=== PATIENT | male | born 1955 | race Caucasian/White ===

== ENCOUNTER 2016-07-01 16:49 | Emergency (ER) | payer MEDICARE, MEDICAID ==
[2016-07-01] MEDS ORDERED: Aspirin Low Dose CHEW TAB* 81 MG PO ONE (17:14)
[2016-07-01 17:33] LABS: Hematocrit 41 % (42-52); Hemoglobin 13.2 g/dl (14.0-18.0); Mean Corpuscular HGB Conc 33 g/dl (31-36); Mean Corpuscular Hemoglobin 32 pg (27-31); Mean Corpuscular Volume 97 fL (80-94); Mean Platelet Volume 7 um3 (7.4-10.4); Red Blood Count 4.16 10^6/ul (4.0-5.4); Red Cell Distribution Width 16 % (10.5-15); White Blood Count 4.5 10^3/ul (3.5-10.8)
[2016-07-01 18:10] LABS: BUN/Creatinine Ratio 11.1 (8-20); Calcium 9.4 mg/dL (8.6-10.3); EGFR African American 99.2 (>60); EGFR Non-African American 77.1 (>60); Globulin 2.9 g/dL (2-4); Magnesium 1.8 mg/dL (1.9-2.7); Total Bilirubin 0.3 mg/dL (0.2-1.0); Total Protein 6.9 g/dL (6.4-8.9)
[2016-07-01 18:24] LABS: T4 6.32 g/dL (6.09-12.23)
[2016-07-01 18:25] LABS: TSH (Thyroid Stimulating Horm) 1.03 mcIU/mL (0.34-5.60)
--- NOTE | 2016-07-01 18:35 | RAD ---
INDICATION: Chest pain. Asthma. COMPARISON: October 26, 2015 portable chest radiograph and April 10, 2014 CT. TECHNIQUE: Dual energy PA and routine lateral views of the chest were obtained. REPORT: Mild bibasilar alveolar and interstitial consolidation. Negative for pleural effusions. Apparent bilateral peripheral pleural thickening corresponds with subpleural fat on CT. Mild cardiomegaly. Unremarkable central pulmonary vasculature. IMPRESSION: Suggestion of mild bibasilar airspace consolidation concerning for pneumonia given absence of volume loss to favor atelectasis.
[2016-07-01] MEDS ORDERED: Levofloxacin 750 MG IVPREMIX(* 750 MG/150 ML BAG IVPB ONE (20:00)
--- NOTE | 2016-07-01 21:58 | ED ---
Live Jarrett Matthew, scribed for Arron Wick MD on 07/01/16 at 1913 . HPI Chest Pain - HPI Summary HPI Summary: A 61 y/o male presents to the ED with intermittent mid-sternal chest pain since 16:00. The pain is rated 8/10 in severity. Associated symptoms include productive cough. The patient denies SOB, nausea, and vomiting. The patient has episodes of chest pain frequently according to his sister. He also had a Hx of frequent pneumonia. Hx of Crohn's disease, some MR, and schizophrenia - History of Current Complaint Chief Complaint: EDChestPainROMI Time Seen by Provider: 07/01/16 18:59 Onset/Duration: Started Hours Ago, Atraumatic, Still Present Timing: Intermittent Initial Severity: Moderate Current Severity: Moderate Pain Intensity: 8 Pain Scale Used: 0-10 Numeric Chest Pain Location: Mid Sternal Chest Pain Radiates: No Associated Signs and Symptoms: Positive: Chest Pain, Cough. Negative: Shortness of Breath, Nausea, Vomiting - Allergy/Home Medications Allergies/Adverse Reactions: Allergies Allergy/AdvReac Type Severity Reaction Status Date / Time No Known Allergies Allergy Verified 09/19/13 17:49 PMH/Surg Hx/FS Hx/Imm Hx Endocrine/Hematology History: Reports: Hx Thyroid Disease Denies: Hx Anticoagulant Therapy, Hx Blood Disorders, Hx Blood Transfusions, Hx Bone Marrow Disease, Hx Diabetes, Hx Systemic Lupus Erythematosus, Hx Sickle Cell Disease, Hx Anemia, Hx Unexplained Bleeding, Other Endocrine/Hematological Disorders Respiratory History: Reports: Hx Asthma, Hx Chronic Bronchitis, Hx Pneumonia, Hx Pulmonary Edema Denies: Hx Chronic Obstructive Pulmonary Disease (COPD), Hx Cystic Fibrosis, Hx Lung Cancer, Hx Pleural Effusion, Hx Pulmonary Embolism, Hx Seasonal Allergies, Hx Sleep Apnea, Other Respiratory Problems/Disorders GI History: Reports: Hx Crohn's Disease Denies: Hx Cirrhosis, Hx Diverticulosis, Hx Gall Bladder Disease, Hx Gastroesophageal Reflux Disease, Hx Gastrointestinal Bleed, Hx Hiatal Hernia, Hx Irritable Bowel, Hx Jaundice, Hx Obstructive Bowel, Hx Ileostomy, Hx Ulcer, Other GI Disorders History: Reports: Other Problems/Disorders - enlarged prostate Musculoskeletal History: Reports: Other Musculoskeletal History - hip replacement weak on legs Denies: Hx Arthritis, Hx Back Problems, Hx Bursitis, Hx Congenital Bone Abnormalities, Hx Fibromyalgia, Hx Gout, Hx Orthopedic Injury, Hx Osteoporosis, Hx Scoliosis, Hx Tendonitis Sensory History: Reports: Hx Contacts or Glasses - not with patient, Hx Vision Problem Denies: Hx Cataracts, Hx Eye Injury, Hx Eye Prosthesis, Hx Glaucoma, Hx Legally Blind, Hx Macular Degeneration, Hx Deafness, Hx Hearing Aid, Hx Hearing Problem, Other Sensory Impairments Opthamlomology History: Reports: Hx Contacts or Glasses - not with patient, Hx Vision Problem Denies: Hx Cataracts, Hx Eye Injury, Hx Eye Prosthesis, Hx Glaucoma, Hx Legally Blind, Hx Macular Degeneration, Other Sensory Impairments Neurological History: Reports: Hx Developmental Delay Denies: Hx Dementia, Hx Headaches, Hx Migraine, Hx Nerve Disease, Hx Seizures , Hx Spinal Cord Injury, Hx Transient Ischemic Attacks (TIA), Other Neuro Impairments/Disorders Psychiatric History: Reports: Hx Anxiety, Hx Attention Deficit Hyperactivity Disorder, Hx Eating Disorder - fixation on food wants to eat a lot, Hx Depression, Hx Panic Disorder, Hx Inpatient Treatment, Hx Community Mental Health Tx, Hx Schizophrenia, Hx Bipolar Disorder, Other Psychiatric Issues/ Disorders - hospital stays increase anxiety Denies: Hx Post Traumatic Stress Disorder, Hx Suicide Attempt, Hx of Violent Episodes Against Others, Hx Substance Abuse - Cancer History Hx Chemotherapy: No Hx Radiation Therapy: No Hx Palliative Cancer Treatment: No - Surgical History Surgery Procedure, Year, and Place: partial thyroidectomy 2013, bowel resection , total hip replacement Hx Anesthesia Reactions: No Infectious Disease History: No Infectious Disease History: Denies: Hx Clostridium Difficile, Hx Hepatitis, Hx Human Immunodeficiency Virus (HIV), Hx of Known/Suspected MRSA, Hx Shingles, Hx Tuberculosis, Hx Known/ Suspected VRE, Hx Known/Suspected VRSA, History Other Infectious Disease, Traveled Outside the [place] in Last 30 Days - Family History Known Family History: Positive: Cardiac Disease - Social History Alcohol Use: None Substance Use Type: Reports: None, Other Smoking Status (MU): Never Smoked Tobacco Review of Systems Constitutional: Negative Eyes: Negative ENT: Negative Positive: Chest Pain Positive: Cough. Negative: Shortness Of Breath Gastrointestinal: Negative Negative: Vomiting, Nausea Genitourinary: Negative Musculoskeletal: Negative Skin: Negative Neurological: Negative Psychological: Other - minimal MR All Other Systems Reviewed And Are Negative: Yes Physical Exam - Summary Physical Exam Summary: VITAL SIGNS: Reviewed. GENERAL: Patient is a well developed and nourished male who is lying comfortable in the stretcher. Patient is not in any acute respiratory distress. HEAD AND FACE: No signs of trauma. No ecchymosis, hematomas or skull depressions. No sinus tenderness. EYES: PERRLA, EOMI x 2, No injected conjunctiva, no nystagmus. EARS: Hearing grossly intact. Ear canals and tympanic membranes are within normal limits. MOUTH: Oropharynx within normal limits. NECK: Supple, trachea is midline, no adenopathy, no JVD, no carotid bruit, no c- spine tenderness, neck with full ROM. CHEST: Symmetric, no tenderness at palpation LUNGS: Clear to auscultation bilaterally. No wheezing or crackles. CVS: Regular rate and rhythm, S1 and S2 present, no murmurs or gallops appreciated. ABDOMEN: Soft, non-tender. No signs of distention. No rebound no guarding, and no masses palpated. Bowel sounds are normal. EXTREMITIES: FROM in all major joints, no edema, no cyanosis or clubbing. NEURO: Alert and oriented x 3. No acute neurological deficits. Speech is normal and follows commands. SKIN: Dry and warm Triage Information Reviewed: Yes Vital Signs On Initial Exam: Initial Vitals Temp Pulse Resp BP Pulse Ox 98.8 F 103 16 147/80 94 07/01/16 17:13 07/01/16 17:13 07/01/16 17:13 07/01/16 17:13 07/01/16 17:13 Vital Signs Reviewed: Yes Diagnostics - Vital Signs Vital Signs Temp Pulse Resp BP Pulse Ox 07/01/16 18:41 98.3 F 87 18 148/93 94 07/01/16 17:13 98.8 F 103 16 147/80 94 - Laboratory Lab Results: Lab Results 07/01/16 07/01/16 07/01/16 Range/Units 17:24 17:24 17:24 WBC 4.5 (3.5-10.8) 10^3/ul RBC 4.16 (4.0-5.4) 10^6/ul Hgb 13.2 L (14.0-18.0) g/dl Hct 41 L (42-52) % MCV 97 H (80-94) fL MCH 32 H (27-31) pg MCHC 33 (31-36) g/dl RDW 16 H (10.5-15) % Plt Count 168 (150-450) 10^3/ul MPV 7 L (7.4-10.4) um3 Neut % (Auto) 53.9 (38-83) % Lymph % (Auto) 28.2 (25-47) % Fisher % (Auto) 13.6 H (1-9) % Eos % (Auto) 2.9 (0-6) % Baso % (Auto) 1.4 (0-2) % Absolute Neuts (auto) 2.4 (1.5-7.7) 10^3/ul Absolute Lymphs (auto) 1.3 (1.0-4.8) 10^3/ul Absolute Monos (auto) 0.6 (0-0.8) 10^3/ul Absolute Eos (auto) 0.1 (0-0.6) 10^3/ul Absolute Basos (auto) 0.1 (0-0.2) 10^3/ul Absolute Nucleated RBC 0 10^3/ul Nucleated RBC % 0 Sodium 139 (133-145) mmol/L Potassium 4.0 (3.5-5.0) mmol/L Chloride 101 (101-111) mmol/L Carbon Dioxide 28 (22-32) mmol/L Anion Gap 10 (2-11) mmol/L BUN 11 (6-24) mg/dL Creatinine 0.99 (0.67-1.17) mg/dL Est GFR ( Amer) 99.2 (>60) Est GFR (Non-Af Amer) 77.1 (>60) BUN/Creatinine Ratio 11.1 (8-20) Glucose 128 H (70-100) mg/dL Lactic Acid 2.5 H* (0.5-2.0) mmol/L Calcium 9.4 (8.6-10.3) mg/dL Magnesium 1.8 L (1.9-2.7) mg/dL Total Bilirubin 0.30 (0.2-1.0) mg/dL AST 25 (13-39) U/L ALT 23 (7-52) U/L Alkaline Phosphatase 64 (34-104) U/L CK-MB (CK-2) 1.6 (0.6-6.3) ng/mL Myoglobin 76.4 (17.4-105.7) ng/mL Troponin I 0.00 (<0.04) ng/mL B-Natriuretic Peptide ( - 100) pg/mL Total Protein 6.9 (6.4-8.9) g/dL Albumin 4.0 (3.2-5.2) g/dL Globulin 2.9 (2-4) g/dL Albumin/Globulin Ratio 1.4 (1-3) TSH 1.03 (0.34-5.60) mcIU/mL Thyroxine (T4) 6.32 (6.09-12.23) g/dL 07/01/16 Range/Units 17:24 WBC (3.5-10.8) 10^3/ul RBC (4.0-5.4) 10^6/ul Hgb (14.0-18.0) g/dl Hct (42-52) % MCV (80-94) fL MCH (27-31) pg MCHC (31-36) g/dl RDW (10.5-15) % Plt Count (150-450) 10^3/ul MPV (7.4-10.4) um3 Neut % (Auto) (38-83) % Lymph % (Auto) (25-47) % Fisher % (Auto) (1-9) % Eos % (Auto) (0-6) % Baso % (Auto) (0-2) % Absolute Neuts (auto) (1.5-7.7) 10^3/ul Absolute Lymphs (auto) (1.0-4.8) 10^3/ul Absolute Monos (auto) (0-0.8) 10^3/ul Absolute Eos (auto) (0-0.6) 10^3/ul Absolute Basos (auto) (0-0.2) 10^3/ul Absolute Nucleated RBC 10^3/ul Nucleated RBC % Sodium (133-145) mmol/L Potassium (3.5-5.0) mmol/L Chloride (101-111) mmol/L Carbon Dioxide (22-32) mmol/L Anion Gap (2-11) mmol/L BUN (6-24) mg/dL Creatinine (0.67-1.17) mg/dL Est GFR ( Amer) (>60) Est GFR (Non-Af Amer) (>60) BUN/Creatinine Ratio (8-20) Glucose (70-100) mg/dL Lactic Acid (0.5-2.0) mmol/L Calcium (8.6-10.3) mg/dL Magnesium (1.9-2.7) mg/dL Total Bilirubin (0.2-1.0) mg/dL AST (13-39) U/L ALT (7-52) U/L Alkaline Phosphatase (34-104) U/L CK-MB (CK-2) (0.6-6.3) ng/mL Myoglobin (17.4-105.7) ng/mL Troponin I (<0.04) ng/mL B-Natriuretic Peptide 13 ( - 100) pg/mL Total Protein (6.4-8.9) g/dL Albumin (3.2-5.2) g/dL Globulin (2-4) g/dL Albumin/Globulin Ratio (1-3) TSH (0.34-5.60) mcIU/mL Thyroxine (T4) (6.09-12.23) g/dL Result Diagrams: 07/01/16 17:24 07/01/16 17:24 Lab Statement: Any lab studies that have been ordered have been reviewed, and results considered in the medical decision making process. - Radiology CXR Xray Interpretation: Positive (See Comments) - IMPRESSION: Suggestion of mild bibasilar airspace consolidation concerning for pneumonia given absence of volume loss to favor atelectasis. Radiology Interpretation Completed By: Radiologist - EKG 16:56 Cardiac Rate: Tachycardia - 102 bpm EKG Rhythm: Sinus Tachycardia EKG Interpretation: No ST elevation Chest Pain Course/Dx - Course Assessment/Plan: A 61 y/o male presents to the ED with intermittent mid-sternal chest pain since 16:00. The pain is rated 8/10 in severity. Associated symptoms include productive cough. The patient denies SOB, nausea, and vomiting. The patient has episodes of chest pain frequently according to his sister. He also had a Hx of frequent pneumonia. Hx of Crohn's disease, some MR, and schizophrenia. Blood work WNL except for glucose of 128 and lactic acid of 2.5. CXR shows mild bibasilar airspace consolidation concerning for pneumonia. The patient was given Levaquin. I discussed by physical exam findings with the patients sister. The patient will be discharged home with follow-up with his PCP. The patient is hemodynamically stable and will follow-up with PCP in the next 2 days. I discussed all the findings and test results with the patient. Patient was instructed to return to the emergency room immediately if any of the symptoms return or worsens. Plan of care was discussed with the patient and understands and agrees. All questions were answered at patient satisfaction. There were no further complaints or concerns. Lung exam before discharge: CTA B /L. Good air exchange. No wheezing or crackles heard. CVS: S1 and S2 present. No murmurs appreciated. Patient is alert and oriented x 3. Patient is hemodynamically stable. Patient will be discharged home with follow up digital content marketing manager in the next 2-3 days - Diagnoses Provider Diagnoses: Pneumonia Discharge - Discharge Plan Condition: Stable Disposition: HOME Prescriptions: Levofloxacin TAB* [Levaquin TAB*] 750 mg PO DAILY #9 tab Patient Education Materials: Levofloxacin (By mouth), Pneumonia (ED) Referrals: Yamila Ron MD [Primary Care Provider] - 2 Days Additional Instructions: Please follow-up with your primary care physician in 2 days . The documentation as recorded by the Live najera Matthew accurately reflects the service I personally performed and the decisions made by me, Arron Wick MD.
[2016-07-01 22:15] VITALS: BP 141/97
== END 2016-07-01 22:15 | disposition home or self-care (01) ==
LOC: ED 16:49
DX: J18.9 Pneumonia, unspecified organism (principal); R07.9 Chest pain, unspecified; R05 Cough; R06.02 Shortness of breath
CPT/HCPCS: 36415; 71020; 80053; 82553; 83605; 83735; 83874; 83880; 84436; 84443; 84484; 85025; 93005; 96374; 99283; A9270-GY

== ENCOUNTER 2019-01-03 10:37 | Emergency (ER) | payer MEDICARE, MEDICAID ==
[2019-01-03 11:45] VITALS: BP 94/67
--- NOTE | 2019-01-03 12:19 | UC ---
Back Pain HPI - HPI Summary HPI Summary: PT IS A RESIDENT OF A PENITENTIARY. THIS MORNING PT WAS FOUND ON THE BATHROOM FLOOR. HE WAS ALERT AND ORIENTED PER STAFF. HE WAS SPEAKING NORMALLY. HE IS USUALLY A CONTACT FOR AMBULATION BUT PT. GOT UP ON HIS OWN, HE DID USE WALKER. PT WAS FOUND ON FLOOR ON HIS R SIDE. HE IS ACCOMPANIED TODAY BY PROVIDER ENGAGEMENT EXECUTIVE. NO HEAD INJURY, DENIES PAIN OTHER THAN LOW BACK PAIN,DENIES PAIN IN EXTREMITIES OR OTHER INJURIES. PT STATES HE FELT DIZZY BEFORE HE FELL THIS MORNING. - History of Current Complaint Chief Complaint: UCBackPain Stated Complaint: LOW BACK PAIN S/P FALL Hx Obtained From: Patient Timing: Constant Pain Intensity: 9 Aggravating Factor(s): Walking Alleviating Factor(s): Nothing Associated Signs And Symptoms: Negative: Swelling, Redness, Bruising, Abdominal Pain - Allergies/Home Medications Allergies/Adverse Reactions: Allergies Allergy/AdvReac Type Severity Reaction Status Date / Time No Known Allergies Allergy Verified 01/03/19 11:32 Home Medications: Home Medications Acetaminophen TAB* [Tylenol TAB*] 325 mg PO Q4H PRN 01/03/19 [History Confirmed 01/03/19] Albuterol 2.5MG/3ML (0.083%)* [Ventolin 2.5 MG/3 ML NEB.[id number]*] 2.5 mg INH Q4H [History Confirmed 01/03/19] Cholecalciferol TAB* [Vitamin D TAB*] 2,000 units PO DAILY 01/03/19 [History Confirmed 01/03/19] Clotrimazole 1% CREAM* [Clotrimazole 1%*] 1 applic TOPICAL BID 01/03/19 [ History Confirmed 01/03/19] Divalproex ER TAB(*) [Depakote ER TAB(*)] 500 mg PO BID 01/03/19 [History Confirmed 01/03/19] FLUoxetine CAP* [PROzac CAP*] 40 mg PO DAILY 01/03/19 [History Confirmed ] Famotidine TAB* [Pepcid 20 MG TAB*] 20 mg PO BID 01/03/19 [History Confirmed ] Furosemide TAB* [Lasix TAB*] 20 mg PO DAILY 01/03/19 [History Confirmed 01/03/19 ] LORazepam TAB(*) [Ativan 1 MG TAB (*)] 2 mg PO BID 01/03/19 [History Confirmed 01/03/19] Levothyroxine TAB* [Synthroid TAB*] 25 mcg PO DAILY 01/03/19 [History Confirmed 01/03/19] Loperamide CAP* [Imodium CAP*] 2 mg PO Q4H PRN 01/03/19 [History Confirmed 01/03] Mesalamine [Apriso] 4 cap PO DAILY 01/03/19 [History Confirmed 01/03/19] Metoprolol Succinate [Metoprolol Succinate ER] 25 mg PO 01/03/19 [History] OLANzapine TAB* [Zyprexa 5 MG TAB*] 15 mg PO DAILY 01/03/19 [History Confirmed 01/03/19] Omeprazole 40 mg PO BID 01/03/19 [History Confirmed 01/03/19] Perphenazine TAB* [Trilafon TAB*] 2 mg PO BID 01/03/19 [History Confirmed ] Potassium Chlor TAB (NF) [Kaon-Cl-10 TAB (NF)] 10 meq PO DAILY 01/03/19 [ History Confirmed 01/03/19] Topiramate TAB(*) [Topamax 100 mg tab] 50 mg PO BEDTIME 01/03/19 [History Confirmed 01/03/19] guaiFENesin LIQ* [Robitussin*] 5 mg PO Q4H PRN 01/03/19 [History Confirmed 01/03] PMH/Surg Hx/FS Hx/Imm Hx - Additional Past Medical History Additional PMH: COGNITION ISSUES/CHRONIC Previously Healthy: Yes Cardiovascular History: Hypertension Psychological History: Schizophrenia Other History Of: Negative For: Anticoagulant Therapy - Surgical History Surgical History: Yes Surgery Procedure, Year, and Place: partial thyroidectomy 2013, bowel resection , total hip replacement - Family History Known Family History: Positive: Cardiac Disease - Social History Alcohol Use: None Substance Use Type: None Smoking Status (MU): Never Smoked Tobacco - Immunization History Most Recent Influenza Vaccination: 01/2014 Most Recent Tetanus Shot: date unknown but within 10 years Most Recent Pneumonia Vaccination: 2005 Review of Systems All Other Systems Reviewed And Are Negative: Yes Constitutional: Negative: Fever, Chills, Fatigue Skin: Negative: Bruising Cardiovascular: Negative: Chest Pain Gastrointestinal: Negative: Abdominal Pain Genitourinary: Negative: Hematuria Musculoskeletal: Positive: Arthralgia - BACK PAIN. Negative: Edema, Myalgia Neurological: Positive: Other - SELF REPORTED DIZZINESS BUT PROVIDER ENGAGEMENT EXECUTIVE DECLINES COMPLAINTS OF DIZZINESS PRIOR TO THIS. denies urinary incontinence.. Negative : Headache Physical Exam Triage Information Reviewed: Yes Appearance: Well-Appearing Vital Signs: Initial Vital Signs Temp 97.8 F 01/03/19 11:33 Pulse 63 01/03/19 11:33 Resp 20 01/03/19 11:33 BP 94/67 01/03/19 11:33 Pulse Ox 96 01/03/19 11:33 Vital Signs Reviewed: Yes Respiratory Exam: Normal Cardiovascular Exam: Normal Neurological: Positive: Alert, Other: - CN II-XII, has walker. Negative: Fatigued, Lethargic, Unresponsive Skin: Negative: Other - NO BRUISING Back Pain Course/Dx - Course Course Of Treatment: ACUTE LOWER BACK PAIN AFTER UNWITNESSED FALL IN A PT. W/ MENTAL COGNITION ISSUES /SCHIZOPHRENIA AND PENITENTIARY RESIDENT. HE IS ON CONTACT AMBULATION AND ALWAYS NEEDS SOMEONE TO WALK WITH HIM AND USES WALKER WELL. HE USED HIS [facility] AND THEY FOUND HIM IN BATHROOM ON HIS R SIDE. FALL WAS UNWITNESSED BUT IT IS NOT THOUGHT THAT HE HIT HIS HEAD AND ON EXAM TODAY NO REDNESS OR BRUISING ON HEAD AND NO CHANGES IN MENTAL STATE. THE COMPLAINT OF DIZZINESS WAS DISCUSSED AND ADVISED TO CONT. TO MONITOR BUT BOTH PROVIDER ENGAGEMENT EXECUTIVE AND I THOUGHT THIS WAS NOT WHAT CAUSED FALL HE DOES HAVE PHYSICAL AMBULATION ISSUES. WHEN HE WAS FOUND HE HAD NORMAL SPEECH AND VISION. ON EXAM THERE IS NO ABNORMAL HIP/KNEE/LOWER BACK FINDINGS. NOT THOUGHT TO HAVE ANY NEURODEFICITS OR SPINAL INJURIES. VITALS GOOD. PLAN IS TO USE TYLENOL AND IBU ALTERNATING ALONG W/ ICE/HEAT. - Differential Dx/Diagnosis Differential Diagnosis/HQI/PQRI: Cauda Equina Syndrome, Strain, Sprain Provider Diagnosis: Back pain, Fall Discharge ED - Sign-Out/Discharge Documenting (check all that apply): Patient Departure All imaging exams completed and their final reports reviewed: No Studies - Discharge Plan Condition: Good Disposition: HOME Patient Education Materials: Low Back Strain (ED) Referrals: Yamila Ron MD [Primary Care Provider] - Additional Instructions: PLEASE USE ALTERNATING HEAT OR ICE FOR PAIN RELIEF. I HAVE ADDED IBUPROFEN TO USE WITH TYLENOL. I DO NOT THINK YOU HAVE ANY FRACTURES BASED ON THE EXAM. - Billing Disposition and Condition Condition: GOOD Disposition: Home
== END 2019-01-03 12:36 | disposition home or self-care (01) ==
LOC: UCCORT 10:37
DX: M54.5 Low back pain (principal); W18.30XA Fall on same level, unspecified, initial encounter; Y92.192 Bathroom in other specified residential institution as the place of occurrence of the external cause; I10 Essential (primary) hypertension; F20.9 Schizophrenia, unspecified; Z96.649 Presence of unspecified artificial hip joint
CPT/HCPCS: 99212; G0463

== ENCOUNTER 2019-03-11 16:45 | Emergency (ER) | payer MEDICARE, MEDICAID ==
[2019-03-11 18:07] VITALS: BP 107/77
--- NOTE | 2019-03-15 07:33 | UC ---
- Progress Note Progress Note: Stool culture results from March 11, 2019 comes back with stool culture is no growth. The shiga toxin wanted to were unable to be performed. Nursing to call patient if he is completely normal is no need for further evaluation. If he has not improved and continues to have diarrhea that could be Shiga patient needs to either be reevaluated by his primary care doctor or go to the emergency room or return here with another sample based on intensity of symptoms and level of concern. Course/Dx - Diagnoses Provider Diagnoses: Diarrhea Discharge ED - Sign-Out/Discharge Documenting (check all that apply): Patient Departure All imaging exams completed and their final reports reviewed: No Studies - Discharge Plan Condition: Stable Disposition: HOME Patient Education Materials: Abdominal Pain (ED) Referrals: Saul Valderrama DO [Primary Care Provider] - Additional Instructions: Pt felt improved following a sizeable bowel movement at . Pt reports his abdominal pain is resolved. He ate and drank without difficulty His urine and stool have been sent for additional testing It is recommended he be monitored closely - vitals signs and assessment every 4 hours tonight and tomorrow If he develops increased reports of pain, fever, vomiting, or you have any other concerns it is recommended you contact his doctor or take him to the emergency department for further evaluation and treatment - Billing Disposition and Condition Condition: STABLE Disposition: Home
--- NOTE | 2019-03-19 10:24 | UC ---
UC General HPI - HPI Summary HPI Summary: Patient brought to urgent care by staff member. Patient's 63-year-old gentleman who was complaining of some abdominal pain earlier. Staff was concerned that his stool had an order. Patient was recently completed a course of antibiotics for a respiratory complaint. No fevers or chills. Patient eating and drinking without difficulty. Patient without any fevers, rash. Patient urgent care had a sizable soft bowel movement. No blood nor black. Patient states he feels markedly improved following bowel movement. Patient requesting something to eat and drink at urgent care. [facility]ations as [facility] will review this visit. Entered in the EMR by nursing. - History of Current Complaint Chief Complaint: UCGeneralIllness Stated Complaint: URINARY Time Seen by Provider: 03/11/19 18:50 Hx Obtained From: Patient Onset Severity: Mild Current Severity: None Pain Intensity: 0 - Allergy/Home Medications Allergies/Adverse Reactions: Allergies Allergy/AdvReac Type Severity Reaction Status Date / Time No Known Allergies Allergy Verified 03/11/19 17:59 PMH/Surg Hx/FS Hx/Imm Hx Previously Healthy: Yes Psychological History: Anxiety, Depression Other History Of: Negative For: Anticoagulant Therapy - Surgical History Surgical History: Yes Surgery Procedure, Year, and Place: partial thyroidectomy 2013, bowel resection , total hip replacement - Family History Known Family History: Positive: Cardiac Disease - Social History Alcohol Use: None Substance Use Type: None Smoking Status (MU): Never Smoked Tobacco - Immunization History Most Recent Influenza Vaccination: 01/2014 Most Recent Tetanus Shot: date unknown but within 10 years Most Recent Pneumonia Vaccination: 2005 Review of Systems All Other Systems Reviewed And Are Negative: Yes Constitutional: Positive: Negative Skin: Positive: Negative Eyes: Positive: Negative Gastrointestinal: Positive: Abdominal Pain, Diarrhea - Soft stool but formed, Other - Odor reported by staff Motor: Positive: Negative Physical Exam - Summary Physical Exam Summary: Vital Signs Reviewed: Yes A+Ox3, no distress, pt cooperative some disability but answers direct questions 2 staff members at bedside Eyes: Conjunctiva Clear, JAI. EOM intact and full ENT: Hearing grossly normal TM x 2 clear, mmoist, uvula midline, no exudate, no erythema Neck: Positive: Supple Respiratory: Positive: No respiratory distress, No accessory muscle use + CTA throughout no w/r Cardiovascular: RRR nl s1, s2 no m/r CBT <2 sec abd soft + BS nt/nd no guarding, no distension Musculoskeletal Exam: VALENCIA x 4 without difficulty Strength Intact, ROM Intact Neurological: Positive: Alert, + sensation throughout Psychological: Positive: Normal Response To examiner Skin: Positive: no rash, no ecchymosis Triage Information Reviewed: Yes Vital Signs: Initial Vital Signs Temp 98.1 F 03/11/19 17:59 Pulse 68 03/11/19 17:59 Resp 16 03/11/19 17:59 BP 107/77 03/11/19 17:59 Pulse Ox 98 03/11/19 17:59 Course/Dx - Course Course Of Treatment: Patient presents to urgent care with staff members. Patient has been complaining of some abdominal pain today. Staff members concerned the patient stool had an odor. Patient recently completed a course of antibiotics for respiratory infection. An urgent care patient has a sizable's soft but formed bowel movement. Patient denies any pain following this. Patient taking good by mouth prior to and urgent care. On exam vital signs are stable. Patient appropriate in no distress. Patient does have some mild MR but is able to answer direct questions. Patient is drinking and eating in exam room. No focal findings on exam. We'll check urine that was negative for infection culture. We'll also send stool sample. Strict return precautions discussed the patient and staff. Recommend vital signs every 4 hours tonight. Patient is able to department his symptoms increase or return. Staff states understanding of plan. We'll discharge to home. - Diagnoses Provider Diagnosis: Diarrhea Discharge ED - Sign-Out/Discharge Documenting (check all that apply): Patient Departure All imaging exams completed and their final reports reviewed: No Studies - Discharge Plan Condition: Stable Disposition: HOME Patient Education Materials: Abdominal Pain (ED) Referrals: Saul Valderrama DO [Primary Care Provider] - Additional Instructions: Pt felt improved following a sizeable bowel movement at . Pt reports his abdominal pain is resolved. He ate and drank without difficulty His urine and stool have been sent for additional testing It is recommended he be monitored closely - vitals signs and assessment every 4 hours tonight and tomorrow If he develops increased reports of pain, fever, vomiting, or you have any other concerns it is recommended you contact his doctor or take him to the emergency department for further evaluation and treatment - Billing Disposition and Condition Condition: STABLE Disposition: Home
== END 2019-03-11 19:29 | disposition home or self-care (01) ==
LOC: UCCORT 16:45
DX: R19.7 Diarrhea, unspecified (principal); Z96.649 Presence of unspecified artificial hip joint
CPT/HCPCS: 81003; 87045; 87046; 87086; 99211; G0463